=== PATIENT | female | born 1995 | race African-American/Black ===

== ENCOUNTER 2018-11-21 23:04 | Emergency (ER) | payer OTHER ==
[2018-11-21 23:07] VITALS: BP 101/56; PULSE 87; TEMP 98.2; BMI 27.4
[2018-11-22] MEDS ORDERED: KETOROLAC TROMETHAMINE 30 MG/1 ML VIAL IM ONE (00:24)
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
== END 2018-11-22 00:53 | disposition home or self-care (01) ==
LOC: JER 23:04
PROC: 3E0233Z Introduction of Anti-inflammatory into Muscle, Percutaneous Approach (ICD-10-PCS; principal; 2018-11-21)
DX: S13.4XXA Sprain of ligaments of cervical spine, initial encounter (principal); V49.69XA Unspecified car occupant injured in collision with other motor vehicles in traffic accident, initial encounter; Y92.488 Other paved roadways as the place of occurrence of the external cause; W22.10XA Striking against or struck by unspecified automobile airbag, initial encounter; Y93.89 Activity, other specified; Y99.8 Other external cause status
CPT/HCPCS: 99282-25

== ENCOUNTER 2023-06-03 13:58 | Emergency (ER) | payer SELFPAY ==
[2023-06-03 14:22] VITALS: BP 103/60; PULSE 68; RESP 18; TEMP 98.7; BMI 30.9
[2023-06-03] MEDS ORDERED: LIDOCAINE 4% PATCH TP ONE (16:19)
[2023-06-03 17:26] LABS: EPI CELLS >36 /uL (0-25.1); HYALINE CASTS 9 /uL (0-3.1); PH,URINE 5.5 (5.0-8.0); URINE APPEARANCE CLOUDY; URINE BACTERIA 290 /uL (0-1359); URINE BILIRUBIN NEGATIVE (NEGATIVE); URINE COLOR DK YELLOW; URINE GLUCOSE (UA) NEGATIVE (NEGATIVE); URINE KETONE 2+ (NEGATIVE); URINE LEUK ESTERASE NEGATIVE (NEGATIVE); URINE NITRITE NEGATIVE (NEGATIVE); URINE PROTEIN 2+ (NEGATIVE); URINE RBC 7 /uL (0-23.9)
[2023-06-03 17:28] LABS: HCG,QUALITATIVE URINE Negative
[2023-06-03 18:13] LABS: URINE WBC 74.4 /uL (0-25.8)
[2023-06-03] MEDS: LIDOCAINE 4% PATCH TP ONE (19:00)
[2023-06-03] MEDS: ACETAMINOPHEN 500 MG TABLET (FP) PO ONE (19:23)
[2023-06-03] MEDS: METHOCARBAMOL 750 MG TABLET PO ONE (19:23)
[2023-06-03] MEDS ORDERED: LIDOCAINE PATCH REMOVAL MC SCH (22:00)
== END 2023-06-03 20:32 | disposition home or self-care (01) ==
LOC: JER 13:58
DX: S20.212A Contusion of left front wall of thorax, initial encounter (principal); S40.011A Contusion of right shoulder, initial encounter; S40.012A Contusion of left shoulder, initial encounter; S00.83XA Contusion of other part of head, initial encounter; R51.9 Headache, unspecified; M54.2 Cervicalgia; M54.6 Pain in thoracic spine; M25.511 Pain in right shoulder; M25.512 Pain in left shoulder; M25.531 Pain in right wrist; M25.532 Pain in left wrist; Y04.0XXA Assault by unarmed brawl or fight, initial encounter
CPT/HCPCS: 70450-TC; 70480-TC; 71046-TC-FY; 72125-TC; 73030-TC-LT-FY; 73030-TC-RT-FY; 73070-TC-RT-FY; 73090-TC-RT-FY; 73110-TC-LT-FY; 73110-TC-RT-FY; 81003; 84703; 87086; 87186; 99285-25